=== PATIENT | female | born 1990 | race Caucasian/White ===

== ENCOUNTER 2016-09-02 19:30 | Emergency (ER) | payer BC, OTHER | END 2016-09-02 22:10 | disposition home or self-care (01) | LOC: ER 19:30 | DX: R07.2 Precordial pain (principal); Z79.899 Other long term (current) drug therapy; Z88.0 Allergy status to penicillin | CPT/HCPCS: 36415; 96360 ==

== ENCOUNTER 2017-03-23 19:11 | Emergency (ER) | payer OTHER | END 2017-03-23 22:22 | disposition home or self-care (01) | LOC: ER 19:11 | DX: J06.9 Acute upper respiratory infection, unspecified (principal); F41.9 Anxiety disorder, unspecified; Z79.899 Other long term (current) drug therapy | CPT/HCPCS: 87502; 87651 ==